=== PATIENT | male | born 1965 | race Two or more races ===

== ENCOUNTER → 2017-05-30 | Emergency (ER) | payer OTHER ==
[~2017-05-30] VITALS: Ht 180.3 cm; Wt 138.3 kg
[~2017-05-30] MED LIST: BACTROBAN OINT22 GM TP; COZAAR25 MG; GLIMEPIRIDE1 MG; INTEGRA PLUS C1 EACH PO; INTESTINEX1 CAP PO; LEVAQUIN750 MG PO; METFORMIN HYDR100 GM; OXYC1TAB9 PO; PROTONIX40 MG PO; PROVENTIL3 ML/2.5 M IH; TOPROL XL100 M1; XARELTO10 MG PO; ZOCOR5 MG; ZYNCOF 20-400120 ML PO
== END | disposition home or self-care (01) ==
LOC: ER 18:41
DX: M54.31 Sciatica, right side (principal); M25.551 Pain in right hip

== ENCOUNTER 2020-05-19 09:41 | Emergency (ER) | payer OTHER ==
[~2020-05-19] VITALS: Ht 180.3 cm; Wt 133.8 kg
[2020-05-19] MEDS ORDERED: NORFLEX100MG PO (12:30)
[2020-05-19] MEDS ORDERED: KETO10TA2 PO (12:30)
== END 2020-05-19 13:10 | disposition home or self-care (01) ==
LOC: ER 09:41
DX: M75.32 Calcific tendinitis of left shoulder (principal); M25.512 Pain in left shoulder

== ENCOUNTER 2021-01-07 13:53 | Emergency (ER) | payer OTHER ==
[~2021-01-07] VITALS: Ht 180.3 cm; Wt 132.9 kg
[~2021-01-07 13:53] MED LIST changes: +KETO10TA2 PO; +NORFLEX100MG PO
[2021-01-07] MEDS ORDERED: KAPSPARGO SPRIN25 MG PO (14:06)
[2021-01-07] MEDS ORDERED: NORFLEX100MG PO (14:45)
[2021-01-07] MEDS ORDERED: KETO10TA2 PO (14:45)
== END 2021-01-07 14:53 | disposition home or self-care (01) ==
LOC: ER 13:53
DX: S30.0XXA Contusion of lower back and pelvis, initial encounter (principal); W18.39XA Other fall on same level, initial encounter; Y93.89 Activity, other specified; Y92.098 Other place in other non-institutional residence as the place of occurrence of the external cause; Y99.8 Other external cause status; I10 Essential (primary) hypertension